=== PATIENT | male | born 1985 | race Caucasian/White ===

== ENCOUNTER 2017-05-31 02:40 | Emergency (ER) | payer SELFPAY ==
[~2017-05-31 02:40] MED LIST: HYDR-2758 PO; IBUP800T19 PO; PHEN100C PO; SULF1TAB24 PO
[2017-05-31] MEDS ORDERED: IV NORMAL SALINE 1,000ML 1,000 ML ONE (02:55)
[2017-05-31] MEDS ORDERED: IV NORMAL SALINE 1,000ML 1,000 ML IV ONE (03:15)
[2017-05-31 03:23] LABS: CALCIUM 8.8 mg/dL (8.5-10.1); CREATININE 1.2 mg/dL (0.7-1.3); GFR 71.1; POTASSIUM 3.5 mmol/L (3.5-5.1)
[2017-05-31 03:39] LABS: BARBITURATES NEG (NEG); BENZODIAZEPINES NEG (NEG); CANNABINOIDS POS (NEG); COCAINE NEG (NEG); METHADONE NEG (NEG); OPIATES NEG (NEG); PHENCYCLIDINE NEG (NEG)
[2017-05-31 03:40] VITALS: BP 112/64
[2017-05-31 03:41] LABS: AMPHETAMINE/METHAMPHETAMINE POS (NEG)
[2017-05-31 03:45] LABS: BASO % 0 % (0-3); EOS # 0.2 x10^3/uL (0.0-0.7); EOS % 2 % (0-3); HEMATOCRIT 43.2 % (39.0-53.0); LYMPH # 2.7 x10^3/uL (1.0-4.8); LYMPH % 31 % (24-48); MEAN CORPUSCULAR HEMOGLOBIN 29 pg (25-35); MEAN CORPUSCULAR HGB CONC 35 g/dL (31-37); MEAN CORPUSCULAR VOLUME 84 fL (79-100); MONO # 0.6 x10^3/uL (0.0-1.1); MONO % 7 % (0-9); NEUT # 5.1 x10^3uL (1.8-7.7); NEUT % 59 % (31-73); PLATELET COUNT 209 x10^3/uL (140-400); RED BLOOD COUNT 5.18 x10^6/uL (4.30-5.70); RED CELL DISTRIBUTION WIDTH 13.6 % (11.5-14.5); WHITE BLOOD COUNT 8.7 x10^3/uL (4.0-11.0)
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
== END 2017-05-31 04:00 | disposition home or self-care (01) ==
LOC: ER 02:40
DX: G40.909 Epilepsy, unspecified, not intractable, without status epilepticus (principal); F15.10 Other stimulant abuse, uncomplicated; F17.210 Nicotine dependence, cigarettes, uncomplicated
CPT/HCPCS: 36415; 80048; 80305; 80320; 85027; G0481; 99284-25; J7030

== ENCOUNTER 2018-04-08 19:51 | Emergency (ER) | payer SELFPAY ==
[~2018-04-08] VITALS: Ht 180.3 cm; Wt 70.3 kg
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
[2018-04-08] MEDS ORDERED: cefTRIAXone IM 1 GM VIAL IM ONE (20:00)
[2018-04-08] MEDS ORDERED: SMZ/TMP 800/160MG TABLET. PO ONE (20:00)
[2018-04-08] MEDS ORDERED: TETANUS AND DIPHTHERIA TOX/PF 0.5 ML VIAL. VAX IM ONE (20:00)
[2018-04-08] MEDS ORDERED: SULF1TAB24 PO (20:04)
[2018-04-08 20:29] VITALS: BP 146/90
== END 2018-04-08 20:31 | disposition home or self-care (01) ==
LOC: ER 19:51
DX: L03.116 Cellulitis of left lower limb (principal); L03.115 Cellulitis of right lower limb; T14.8XXA Other injury of unspecified body region, initial encounter; F17.210 Nicotine dependence, cigarettes, uncomplicated; W57.XXXA Bitten or stung by nonvenomous insect and other nonvenomous arthropods, initial encounter; Y93.89 Activity, other specified; Y99.8 Other external cause status; Y92.89 Other specified places as the place of occurrence of the external cause
CPT/HCPCS: 90471; 90714; 96372; 99284; J0696

== ENCOUNTER 2018-05-03 22:33 | Emergency (ER) | payer SELFPAY ==
[~2018-05-03] VITALS: Ht 180.3 cm; Wt 74.8 kg
[2018-05-03] MEDS ORDERED: IV NORMAL SALINE 1,000ML 1,000 ML IV SCH (23:15)
[2018-05-03] MEDS ORDERED: ONDANSETRON PF 4 MG/2 ML VIAL. IV ONE (23:15)
[2018-05-03 23:18] LABS: BASO % 1 % (0-3); EOS # 0.3 x10^3/uL (0.0-0.7); EOS % 4 % (0-3); HEMATOCRIT 43.5 % (39.0-53.0); HEMOGLOBIN 15.1 g/dL (13.0-17.5); LYMPH # 2.3 x10^3/uL (1.0-4.8); LYMPH % 27 % (24-48); MEAN CORPUSCULAR HEMOGLOBIN 28 pg (25-35); MEAN CORPUSCULAR HGB CONC 35 g/dL (31-37); MEAN CORPUSCULAR VOLUME 81 fL (79-100); MONO # 0.5 x10^3/uL (0.0-1.1); MONO % 5 % (0-9); NEUT # 5.6 x10^3uL (1.8-7.7); NEUT % 64 % (31-73); PLATELET COUNT 214 x10^3/uL (140-400); RED BLOOD COUNT 5.37 x10^6/uL (4.30-5.70); RED CELL DISTRIBUTION WIDTH 13.9 % (11.5-14.5); WHITE BLOOD COUNT 8.7 x10^3/uL (4.0-11.0)
[2018-05-03 23:19] LABS: CALCIUM 8.9 mg/dL (8.5-10.1); CREATININE 1.3 mg/dL (0.7-1.3); GFR 64.4; POTASSIUM 3.6 mmol/L (3.5-5.1)
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
[2018-05-04] MEDS ORDERED: IOHEXOL 300 MG/ML 75 ML VIAL. IV ONE (00:45)
[2018-05-04] MEDS ORDERED: CONTRAST GIVEN MC PRN (00:45)
[2018-05-04 02:35] VITALS: BP 104/52
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
[2018-05-04] MEDS ORDERED: IBUP600T16 PO (02:57)
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
== END 2018-05-04 03:46 | disposition home or self-care (01) ==
LOC: ER 22:33
DX: S09.90XA Unspecified injury of head, initial encounter (principal); S29.9XXA Unspecified injury of thorax, initial encounter; S10.93XA Contusion of unspecified part of neck, initial encounter; S00.83XA Contusion of other part of head, initial encounter; F17.210 Nicotine dependence, cigarettes, uncomplicated; Y04.0XXA Assault by unarmed brawl or fight, initial encounter; Y93.89 Activity, other specified; Y99.8 Other external cause status; Y92.89 Other specified places as the place of occurrence of the external cause
CPT/HCPCS: 36415; 70450; 70486; 70498; 71045; 72125; 80048; 85025; 85610; 85730; 96374; 96375; 96376; 99285; G0480; J2405; J3010; Q9967; J7030

== ENCOUNTER 2018-06-06 01:19 | Emergency (ER) | payer SELFPAY ==
[~2018-06-06] VITALS: Ht 180.3 cm; Wt 66.4 kg
[2018-06-06 01:19] VITALS: BP 136/81
[~2018-06-06 01:19] MED LIST changes: +IBUP600T16 PO
[2018-06-06] MEDS ORDERED: PHEN100C PO (01:33)
--- NOTE | 2018-06-06 04:31 | ED.ADGEN ---
Past History Past Medical History: Seizure Past Surgical History: No Surgical History Smoking: Cigarettes, Less than 1pk/day Alcohol Use: None Additional Alcohol Information: Denies alcohol Drug Use: Marijuana Adult General Chief Complaint Chief Complaint Seizure-like activity HPI HPI Patient is a 32-year-old male with known seizure disorder with medication noncompliance who presents with witnessed seizure-like activity while in police custody. Local law enforcement state after patient was arrested, he had a shaking episode lasting less than 3 minutes. Patient noted to have decreased responsiveness shortly after episode. Denies head injury, headache, neck pain. No tongue, oral abrasion or laceration. No urinary incontinence. Patient states he has long-standing history of seizure disorder is been noncompliant with medication due to lack of insurance and other financial resources. Patient states it is been a long time since he has had a seizure. No other acute symptoms or complaints.[] Review of Systems Review of Systems ROS as per HPI All other systems were reviewed and found to be within normal limits, except as documented in this note. Allergies Allergies Allergies Coded Allergies Type Severity Reaction Last Updated Verified No Known Drug Allergies 05/04/18 No Physical Exam Physical Exam Constitutional: Well developed, well nourished, no acute distress, non-toxic appearance. [] HENT: Normocephalic, atraumatic, bilateral external ears normal, oropharynx moist, no oral exudates, nose normal. [] Eyes: PERRLA, EOMI, conjunctiva normal, no discharge. [] Neck: Normal range of motion, no tenderness, supple, no stridor. [] Cardiovascular:Heart rate regular rhythm, no murmur [] Lungs & Thorax: Bilateral breath sounds clear to auscultation [] Abdomen: Bowel sounds normal, soft, no tenderness. [] Skin: Warm, dry, no erythema, no rash. [] Back: No tenderness, no CVA tenderness. [] Extremities: No tenderness, no cyanosis, no clubbing, ROM intact, no edema. [] Neurologic: Alert and oriented X 3, CN 2-12 grossly intact, normal motor function, normal sensory function, no focal deficits noted. [] Psychologic: Affect normal, judgement normal, mood normal. [] Current Patient Data Vital Signs Vital Signs Date Time Temp Pulse Resp B/P (MAP) Pulse Ox O2 Delivery O2 Flow Rate FiO2 06/06/18 01:19 108 20 97 EKG EKG [] Radiology/Procedures Radiology/Procedures [] Course & Med Decision Making Course & Med Decision Making Pertinent Labs and Imaging studies reviewed. (See chart for details) [Seizure episodes consistent with known seizure disorder with infrequent seizures. Recommendations are to resume seizure medication. Prescription of Dilantin has provided. Patient discharged to police custody.] Final Impression Final Impression [1. Seizure episode] Dragon Disclaimer Dragon Disclaimer This electronic medical record was generated, in whole or in part, using a voice recognition dictation system. KIMBER COHEN DO Jun 06, 2018 04:31
== END 2018-06-06 01:38 | disposition home or self-care (01) ==
LOC: ER 01:19 → EEVIPCON 01:19 → ER 01:38
DX: G40.909 Epilepsy, unspecified, not intractable, without status epilepticus (principal); F17.210 Nicotine dependence, cigarettes, uncomplicated
CPT/HCPCS: 99283